=== PATIENT | male | born 1985 | race Two or more races ===

== ENCOUNTER 2017-01-27 21:12 | Emergency (ER) | payer OTHER ==
[~2017-01-27] VITALS: Ht 188 cm; Wt 88.5 kg
[2017-01-27 21:27] VITALS: BP 137/86
[2017-01-27] MEDS ORDERED: SILVER SULFADIAZINE CREAM 25 GM TUBE ONE (21:45)
[2017-01-27] MEDS ORDERED: SILVER SULFADIAZINE CREAM 25 GM TUBE TP ONE (22:00)
== END 2017-01-27 21:51 | disposition home or self-care (01) ==
LOC: ER 21:13
DX: T23.221A Burn of second degree of single right finger (nail) except thumb, initial encounter (principal); X08.8XXA Exposure to other specified smoke, fire and flames, initial encounter; Y93.89 Activity, other specified; Y92.89 Other specified places as the place of occurrence of the external cause; Y99.8 Other external cause status; Z91.09 Other allergy status, other than to drugs and biological substances
CPT/HCPCS: 16020; 99285; A4606; Z7610